=== PATIENT | male | born 1995 | race Caucasian/White ===

== ENCOUNTER 2018-07-12 18:31 | Emergency (ER) | payer OTHER ==
[2018-07-12 18:50] VITALS: BP 122/73
--- NOTE | 2018-07-12 20:28 | ED Physician Documentation ---
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 There might be other pieces, but that is the one that he feels.) Location: Right Quality / character: Aching Associated symptoms: FB sensation. No: Redness, Swelling, Decreased vision Contributing factors: FB (small piece of metal) Similar symptoms before: Has not had sx before Review of Systems Eyes: denies: Loss of vision, Decreased vision, Photophobia Throat: denies: Oral lesions / sores PD PAST MEDICAL HISTORY - Past Medical History Past Medical History: Yes Psych: ADD/ADHD - Past Surgical History Past Surgical History: No - Allergies Allergies/Adverse Reactions: Allergies Allergy/AdvReac Type Severity Reaction Status Date / Time No Known Drug Allergies Allergy Verified 07/12/18 18:43 - Social History Does the pt smoke?: No Smoking Status: Never smoker Does the pt drink ETOH?: No Does the pt have substance abuse?: No PD ED PE NORMAL - Vitals Vital signs reviewed: Yes - General General: Alert and oriented X 3, No acute distress, Well developed/nourished - HEENT HEENT: PERRL, EOMI (single corneal metal FB seen right eye. No others seen including eversion of lids. ), Pharynx benign - Neck Neck: Supple, no meningeal sign, No adenopathy PD ED PE EXPANDED - Eyes Eyes: Right eye, Corneal FB (right eye about 10 o'clock position - removed with opthalmic kathya. No residual rust ring.) Results - Vitals Vitals: Oxygen O2 Source Room air PD MEDICAL DECISION MAKING - ED course Complexity details: considered differential, d/w patient Departure - Departure Disposition: 01 Home, Self Care Clinical Impression: Corneal foreign body Qualifiers: Encounter type: initial encounter Laterality: right Qualified Code(s): T15.01XA - Foreign body in cornea, right eye, initial encounter Condition: Stable Record reviewed to determine appropriate education?: Yes Instructions: ED Foreign Body Cornea Comments: There may be a slight irritation of the eye overnight but it should be fine into tomorrow. The foreign body is out and I do not see any residual staining. Follow-up with any problems or continued symptoms after a day or 2. Discharge Date/Time: 07/12/18 20:47
== END 2018-07-12 20:47 | disposition home or self-care (01) ==
LOC: ED 18:31
DX: T15.01XA Foreign body in cornea, right eye, initial encounter (principal); X58.XXXA Exposure to other specified factors, initial encounter; Y93.89 Activity, other specified
CPT/HCPCS: 65220; 99282; 99283

== ENCOUNTER 2019-06-16 20:10 | Emergency (ER) | payer OTHER ==
--- NOTE | 2019-06-16 22:20 | ED Physician Documentation ---
PD HPI DYSPNEA - Stated complaint Stated Complaint: SHORTNESS OF BREATH - Chief complaint Chief Complaint: Resp - History obtained from History obtained from: Patient - History of Present Illness Timing - onset: Today (see narrative, below) Timing - details: Gradual onset Improved by: Other (no ameliorating factors) Worsened by: Other (nothing) Associated symptoms: Fever. No: Cough, Wheezing, Chest pain / discomfort Similar symptoms before: Has not had sx before Recently seen: Not recently seen - Additional information Additional information: c/o shortness of breath since earlier today. patient says he had fevers last week until yesterday with Tmax 101. He also had sore throat which has nearly resolved. Patient wants COVID-19 test peformed. He says when he was having fevers last week, he called to [facility] and was advised to stay home if he wasn't getting worse. Review of Systems Constitutional: reports: Fever (resolved since yesterday), Chills, Myalgias, Fatigue, Sweats, Other (fever, chills, myalgias, fatigue, sweats have all resolve since yesterday) Throat: reports: Sore throat (nearly resolved) Cardiac: denies: Chest pain / pressure Respiratory: reports: Dyspnea. denies: Cough GI: reports: Reviewed and negative Skin: denies: Rash PD PAST MEDICAL HISTORY - Past Medical History Past Medical History: Yes Psych: ADD/ADHD - Past Surgical History Past Surgical History: No - Present Medications Home Medications: Ambulatory Orders Medication Instructions Recorded Confirmed Dextroamphetamine/Amphetamine 20 mg PO DAILY 06/17/19 06/17/19 [Adderall 20 mg Tablet] - Allergies Allergies/Adverse Reactions: Allergies Allergy/AdvReac Type Severity Reaction Status Date / Time No Known Drug Allergies Allergy Verified 06/17/19 00:38 - Social History Does the pt smoke?: No Smoking Status: Never smoker Does the pt drink ETOH?: No Does the pt have substance abuse?: No PD ED PE NORMAL - Vitals Vital signs reviewed: Yes - General General: Alert and oriented X 3, No acute distress, Well developed/nourished - HEENT HEENT: Moist mucous membranes - Neck Neck: Supple, no meningeal sign - Cardiac Cardiac: RRR, No murmur, No gallop, No rub - Respiratory Respiratory: No respiratory distress, Clear bilaterally Results - Vitals Vitals: Vital Signs - 24 hr 06/16/19 06/17/19 20:10 00:41 Temperature 37.0 C 36.8 C Heart Rate 109 H 71 Respiratory 18 16 Rate Blood Pressure 126/77 142/88 H O2 Saturation 99 98 Oxygen O2 Source Room air - Rads (name of study) chest xray Radiology: Prelim report reviewed, See rad report PD MEDICAL DECISION MAKING - ED course Complexity details: reviewed results, re-evaluated patient, considered differential, d/w patient Departure - Departure Disposition: 01 Home, Self Care Clinical Impression: Dyspnea Qualifiers: Dyspnea type: shortness of breath Qualified Code(s): R06.02 - Shortness of breath Condition: Good Instructions: ED Dyspnea Shortness of Breath Discharge Date/Time: 06/17/19 01:11
--- NOTE | 2019-06-17 00:25 | XRAY Report ---
Reason: dyspnea Procedure Date: 06/16/2019 Accession Number: [id number] / [id number] Procedure: XR - Chest 2 View X-Ray CPT Code: 60607 Final Report FULL RESULT: EXAM: CHEST RADIOGRAPHY EXAM DATE: 06/16/2019 11:59 PM CLINICAL HISTORY: Dyspnea. Shortness of breath started yesterday. COMPARISON: None. TECHNIQUE: 2 views. FINDINGS: Lungs/Pleura: Clear lungs. No pleural effusion. No pneumothorax. Mediastinum: Within exam limitations, the cardiomediastinal contour is normal. Other: None. IMPRESSION: Normal 2-view chest radiography. RADIA
[2019-06-17 00:43] VITALS: BP 142/88
== END 2019-06-17 01:11 | disposition home or self-care (01) ==
LOC: ED 20:10
DX: R06.02 Shortness of breath (principal)
CPT/HCPCS: 71046; 81599; 99282; 99284

== ENCOUNTER 2019-06-29 17:37 | Emergency (ER) | payer OTHER ==
[2019-06-29 17:44] VITALS: BP 118/58
--- NOTE | 2019-06-29 17:59 | ED Physician Documentation ---
History of Present Illness - Stated complaint Stated Complaint: 'S NOTE - Chief complaint Chief Complaint: General - History obtained from History obtained from: Patient - History of Present Illness Timing: Today Pain level max: 0 Pain level now: 0 - Additonal information Additional information: 23-year-old male states that he had a negative covid 19 test 2 weeks ago and his work wants a note saying that he can go back to work. He states he has not had any symptoms for the past 2 weeks. Review of Systems Constitutional: denies: Fever Respiratory: denies: Cough PD PAST MEDICAL HISTORY - Past Medical History Past Medical History: Yes Psych: ADD/ADHD - Past Surgical History Past Surgical History: No - Present Medications Home Medications: Ambulatory Orders Medication Instructions Recorded Confirmed Dextroamphetamine/Amphetamine 20 mg PO DAILY 06/17/19 06/29/19 [Adderall 20 mg Tablet] - Allergies Allergies/Adverse Reactions: Allergies Allergy/AdvReac Type Severity Reaction Status Date / Time No Known Drug Allergies Allergy Verified 06/29/19 17:45 - Social History Does the pt smoke?: No Smoking Status: Never smoker Does the pt drink ETOH?: No Does the pt have substance abuse?: No PD ED PE NORMAL - Vitals Vital signs reviewed: Yes - General General: Alert and oriented X 3, No acute distress - HEENT HEENT: Moist mucous membranes - Neck Neck: Supple, no meningeal sign - Cardiac Cardiac: RRR - Respiratory Respiratory: No respiratory distress, Clear bilaterally - Derm Derm: Warm and dry - Neuro Neuro: Alert and oriented X 3 Results - Vitals Vitals: Vital Signs - 24 hr 06/29/19 17:41 Temperature 36.8 C Heart Rate 93 Respiratory 18 Rate Blood Pressure 118/58 L O2 Saturation 99 Oxygen O2 Source Room air PD MEDICAL DECISION MAKING - ED course Complexity details: reviewed old records, considered differential, d/w patient ED course: Patient informed the negative test does not definitively rule out the disease. Also does not definitively state that he is not a carrier. He may have contracted in the meantime as well. We will write a note for him stating that they test was negative but this does not rule out the condition with 100% certainty. This document was made in part using voice recognition software. While efforts are made to proofread this document, sound alike and grammatical errors may occur. Departure - Departure Disposition: 01 Home, Self Care Clinical Impression: Encounter for medical screening examination Condition: Good Follow-Up: your,doctor as needed [Other] Comments: Follow up with your doctor for further care. Forms: Activity restrictions
== END 2019-06-29 18:03 | disposition home or self-care (01) ==
LOC: ED 17:37
DX: Z02.89 Encounter for other administrative examinations (principal)
CPT/HCPCS: 99282